=== PATIENT | male | born 1940 | race Caucasian/White ===

== ENCOUNTER 2018-06-19 09:31 | Emergency (ER) | payer MEDICARE ==
--- NOTE | 2018-06-19 11:02 | RAD ---
THREE VIEWS LUMBAR SPINE: Date: 06-19-18 History: Back pain for one month. Comparison: None available. FINDINGS: Calcifications overlie the right upper quadrant which may potentially represent gallbladder calculi. Vascular calcifications of the abdominal aorta and iliac arteries. There are five non-rib bearing lumbar type vertebral bodies. Multilevel osteophytes are present. Prom inent facet hypertrophic change is seen in the lower lumbar spine with prominent endplate degenerativ e changes at the L5-S1 level with loss of intervertebral disc height. There is also mild loss of inte rvertebral disc height at the L4-5. The vertebral body heights are within normal limits. No fracture is present. There is trace grade I anterolisthesis of L4 on L5. Multiple phleboliths overlie the pelvis. IMPRESSION: 1. 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 2. Trace grade I anterolisthesis of L4 on L5. 3. Calcifications overlying the right upper quadrant probably related to gallbladder calculi. POS: [facility]
== END 2018-06-19 11:38 | disposition home or self-care (01) ==
LOC: ERS 09:31
DX: M54.5 Low back pain (principal); E11.9 Type 2 diabetes mellitus without complications; E78.5 Hyperlipidemia, unspecified; I10 Essential (primary) hypertension; Z79.84 Long term (current) use of oral hypoglycemic drugs; Z79.899 Other long term (current) drug therapy
CPT/HCPCS: 72100